=== PATIENT | female | born 1990 | race Caucasian/White ===

== ENCOUNTER 2016-12-31 14:52 | Emergency (ER) | payer BC ==
[2016-12-31 15:00] VITALS: BP 121/77
--- NOTE | 2016-12-31 16:50 | UC ---
Throat Pain/Nasal Josue HPI - HPI Summary HPI Summary: 2 days of sore throat,nasal congestion, cough no fever---Is taking Benadryl - History of Current Complaint Chief Complaint: UCRespiratory Stated Complaint: COLD,COUGH,ST Time Seen by Provider: 12/31/16 16:42 Hx Obtained From: Patient Hx Last Menstrual Period: ?: Yes Onset/Duration: Sudden Onset, Lasting Days - 2, Still Present Severity: Moderate Pain Intensity: 5 Pain Scale Used: 0-10 Numeric Cough: Nonproductive Associated Signs & Symptoms: Positive: Nasal Discharge Related History: Seasonal Allergies - Allergies/Home Medications Allergies/Adverse Reactions: Allergies Allergy/AdvReac Type Severity Reaction Status Date / Time Cefaclor [From Ceclor] Allergy Mild Rash Verified 10/10/15 11:06 Clarithromycin [From Biaxin] Allergy Mild Rash Verified 10/10/15 11:06 Penicillins Allergy Mild Rash Verified 10/10/15 11:06 Flu Virus Vaccine Allergy Hives Verified 10/10/15 11:06 Naproxen Allergy Rash Verified 10/10/15 11:07 Vancomycin Allergy Rash Verified 10/12/15 00:59 Home Medications: Home Medications Vitamin [Calna] 1 tab PO 12/31/16 [History] diPHENhydraMINE PO* [Benadryl PO 25 MG TAB*] 12/31/16 [History] PMH/Surg Hx/FS Hx/Imm Hx Previously Healthy: Yes - Surgical History Surgical History: Yes Surgery Procedure, Year, and Place: - Family History Known Family History: Positive: Hypertension - Social History Occupation: Employed Full-time Lives: With Family Alcohol Use: None Substance Use Type: None Smoking Status (MU): Former Smoker Type: Cigarettes Amount Used/How Often: none Have You Smoked in the Last Year: No Household Exposure Type: Cigarettes - Immunization History Most Recent Influenza Vaccination: declines, allergic Most Recent Tetanus Shot: 09/11/15 Most Recent Pneumonia Vaccination: never Review of Systems Constitutional: Negative Skin: Negative Eyes: Negative ENT: Sore Throat, Nasal Discharge Respiratory: Cough Cardiovascular: Negative Gastrointestinal: Negative Genitourinary: Negative Motor: Negative Neurovascular: Negative Musculoskeletal: Negative Neurological: Negative Psychological: Negative All Other Systems Reviewed And Are Negative: Yes Physical Exam Triage Information Reviewed: Yes Appearance: No Pain Distress, Well-Nourished, Ill-Appearing - mild Vital Signs: Initial Vital Signs Temp 99.1 F 12/31/16 14:56 Pulse 97 12/31/16 14:56 Resp 18 12/31/16 14:56 BP 121/77 12/31/16 14:56 Pulse Ox 100 12/31/16 14:56 Vital Signs Reviewed: Yes Eye Exam: Normal Eyes: Positive: Conjunctiva Clear ENT Exam: Normal ENT: Positive: Normal ENT inspection, Hearing grossly normal, Pharynx normal, Nasal congestion, Nasal drainage, TMs normal. Negative: Tonsillar swelling, Tonsillar exudate, Trismus, Muffled/hoarse voice Dental Exam: Normal Neck exam: Normal Neck: Positive: Supple, Nontender, No Lymphadenopathy Respiratory Exam: Normal Respiratory: Positive: Chest non-tender, Lungs clear, Normal breath sounds, No respiratory distress, No accessory muscle use Cardiovascular Exam: Normal Cardiovascular: Positive: RRR, No Murmur, Pulses Normal, Brisk Capillary Refill Musculoskeletal Exam: Normal Musculoskeletal: Positive: Strength Intact, ROM Intact Neurological Exam: Normal Neurological: Positive: Alert, Muscle Tone Normal Psychological Exam: Normal Skin Exam: Normal Diagnostics - Laboratory Diagnostic Studies Completed/Ordered: RST (-) Throat Pain/Nasal Course/Dx - Course Assessment/Plan: tylenol, benadryl, nasal saline medications as recommended by OB MD follow with pcp /ob if needed - Differential Dx/Diagnosis Differential Diagnosis/HQI/PQRI: Influenza, Chandana's Angina, Pharyngitis, Sinusitis, URI Provider Diagnoses: URI Discharge - Discharge Plan Condition: Stable Disposition: HOME Patient Education Materials: Acetaminophen (By mouth), Diphenhydramine (By mouth), Sodium Chloride (Into the nose), Upper Respiratory Infection (ED), How to Use Nasal [place] (ED) Referrals: Jv Lim MD [Primary Care Provider] - If Needed
== END 2016-12-31 17:29 | disposition home or self-care (01) ==
LOC: UCEAST 14:52
DX: J06.9 Acute upper respiratory infection, unspecified (principal)
CPT/HCPCS: 87651; 99211; G0463

== ENCOUNTER 2017-07-08 16:38 | Inpatient (IN) | payer BC, MEDICAID ==
[2017-07-08 17:22] LABS: ABS Basophils 0.1 10^3/ul (0-0.2); ABS Eosinophils 0 10^3/ul (0-0.6); ABS Lymphocytes 2.3 10^3/ul (1.0-4.8); ABS Monocytes 0.7 10^3/ul (0-0.8); ABS Neutrophils 6.4 10^3/ul (1.5-7.7); ABS Nucleated RBC 0 10^3/ul; Eosinophil % 0.2 % (0-6); Hematocrit 33 % (35-47); Hemoglobin 11.2 g/dl (12.0-16.0); Lymphocyte % 24.5 % (25-47); Mean Corpuscular HGB Conc 34 g/dl (31-36); Mean Corpuscular Hemoglobin 30 pg (27-31); Mean Corpuscular Volume 88 fL (80-97); Mean Platelet Volume 11 um3 (7.4-10.4); Nucleated Red Blood Cells % 0; Platelet Count 182 10^3/ul (150-450); Red Blood Count 3.73 10^6/ul (4.0-5.4); Red Cell Distribution Width 13 % (10.5-15); White Blood Count 9.5 10^3/ul (3.5-10.8)
[2017-07-08 17:38] LABS: INR 0.75 (0.77-1.02)
[2017-07-08 17:45] LABS: EGFR Non-African American 87.3 (>60)
[2017-07-08] MEDS ORDERED: Sodium Citrate/Citric Acid* 15 ML UDC PO ONE (19:29)
[2017-07-08] MEDS ORDERED: Famotidine IV* 10 MG/ML 2 ML (20 mg) IV ONE (19:29)
[2017-07-08] MEDS ORDERED: Metoclopramide IV* 5 MG/ML 2 ML VIAL IV SLOW PU ONE (19:29)
[2017-07-08] MEDS ORDERED: Morphine PF AMP (0.5MG/ML)* 5 MG/10 ML AMP ONE (19:36)
[2017-07-08] MEDS ORDERED: fentaNYL* 50 MCG/ML 2 ML VIAL (100 MCG VIAL) ONE (19:36)
[2017-07-08] MEDS ORDERED: Clindamycin 900 MG IVPREMIX(* 900 MG/50 ML SDV IV ONE (19:38)
[2017-07-08] MEDS ORDERED: Gentamicin ADULT (*) 250 MG in NS 0.9% 100 ML* 100 ML IVPB ONE (19:39)
[2017-07-08] MEDS ORDERED: Phenylephrine IV* 40 MCG/ML 10 ML SYRINGE ONE (21:17)
[2017-07-08] MEDS ORDERED: EPHEDrine (Pressors)* 50 MG/ML VIAL ONE (21:18)
[2017-07-08] MEDS ORDERED: Sterile Water for Inj* 10 ML ONE (21:18)
[2017-07-08] MEDS ORDERED: Ketorolac INJ* 30 MG/ML 1 ML VIAL ONE (21:41)
[2017-07-08] MEDS ORDERED: Naloxone* 0.4 MG/ML 1 ML VIAL IV PRN ×2 (21:43→21:46)
[2017-07-08] MEDS ORDERED: Scopolamine 1.5 mg* PATCH TRANSDERM PRN (21:43)
[2017-07-08] MEDS ORDERED: oxyCODONE/Acetamin 5/325 MG* TAB PO PRN ×2 (21:43→21:46)
[2017-07-08] MEDS ORDERED: Ondansetron INJ* 2 MG/ML VIAL IV PRN ×2 (21:43→21:46)
[2017-07-08] MEDS ORDERED: diPHENhydraMINE IV* 50 MG/ML 1 ml VIAL (BENADRYL) IV PRN ×2 (21:43→21:46)
[2017-07-08] MEDS ORDERED: fentaNYL* 50 MCG/ML 2 ML VIAL (100 MCG VIAL) IV PRN (21:46)
[2017-07-08] MEDS ORDERED: HYDROmorphone INJ* 1 MG/ML CARPUJECT SYRINGE IV PRN (21:46)
[2017-07-08] MEDS ORDERED: Witch Hazel PAD* JAR TOPICAL PRN (22:22)
[2017-07-08] MEDS ORDERED: Dibucaine 1% 28.35 GM TUBE PR PRN (22:22)
[2017-07-08] MEDS ORDERED: diPHENhydraMINE IV* 50 MG/ML 1 ml VIAL (BENADRYL) ONE (23:44)
--- NOTE | 2017-07-09 02:00 | OP ---
OPERATIVE REPORT: DATE OF OPERATION: 07/08/17 DATE OF : 89 SURGEON: Eric Howell MD HYDRAMATIC MECHANIC: CUCO Leal ANESTHESIOLOGIST: Dr. Diaz. ANESTHESIA: Spinal. PRE-OP DIAGNOSES: 37 + 3 weeks gestation with history of previous , gestational hypertension, and satisfied parity. POST-OP DIAGNOSES: 37+ 3 weeks gestation with history of previous , gestational hypertension, and satisfied parity. OPERATIVE PROCEDURE: Repeat low transverse section and bilateral tubal ligation. ESTIMATED BLOOD LOSS: 700 cc. URINE OUTPUT: 150 cc. IV FLUIDS: 1300 cc of Lactated Ringer's. MATERIALS TO LAB: Cord blood and bilateral tube segments. INDICATIONS: This patient is a 27-year-old 4, para 1, who presented from the office with new onset of high blood pressure and complaint of a persistent headache for the last few days. Headache varied from mild to moderate. The patient has been taking Tylenol with intermittent improvement. The patient had a significant history for severe preeclampsia with her last with delivery before 37 weeks. Labs were drawn on admission and platelets, liver function, and creatinine were all normal. Uric acid was about 6. Urine protein was negative. We discussed the patient's options at length and considering her mildly elevated blood pressure was fairly persistent, we discussed the option of immediate delivery since the patient is already past 37 weeks with gestational hypertension versus continued observation and a 24-hour urine collection to evaluate for preeclampsia. After consideration, the patient desired to proceed with delivery today. During the , she had expressed desire for tubal ligation and this was documented on her chart. We discussed both the repeat section procedure as well as the tubal ligation at great length today. We reviewed the risks of bleeding, transfusion , infection, organ injury, ectopic or intrauterine in the future, DVT , and hysterectomy. After discussion, the patient signed consent. FINDINGS: Normal-appearing uterus, fallopian tubes, and ovaries. Delivery is productive of a 6 pound 3 ounces female infant with Apgars of 9 and 9. Time of delivery was 2122. COMPLICATIONS: None. DESCRIPTION OF PROCEDURE: The risks, benefits, and alternatives were described to the patient, and informed consent was obtained. The patient was taken to the operating room with IV running, where spinal anesthesia was induced and found to be adequate. The patient was prepped and draped in normal sterile fashion in the dorsal supine position with a leftward tilt. A Pfannenstiel skin incision was made with a scalpel through the patient's previous incision. This was carried down to the underlying fascia using the scalpel and Bovie. The fascia was scored in the midline, and the incision was extended using Boudreaux scissors. The fascia was dissected off the underlying rectus muscles using blunt and sharp dissection. The rectus muscles were moderately adhesed to the fascia. The rectus muscles were in the midline using dissection with a Jackie clamp. The peritoneum was then entered bluntly. A bladder blade was placed. A low transverse uterine incision was then made with the scalpel. This was carried down to the amniotic membranes. The membranes were then ruptured, productive of clear fluid. The uterine incision was extended using blunt traction. The head was elevated to the level of the incision, and, with fundal pressure, the head delivered without difficulty. The shoulders then were also both delivered and the body followed. The had excellent tone and cried immediately on delivery. The cord was doubly clamped and cut. The was then handed to the awaiting histology aide. Cord blood was collected. The placenta was delivered with manual extraction. The uterus was then exteriorized and cleared of all clots and debris. The uterine incision was then reapproximated using 0 Polysorb in a running-locked fashion. A second layer of imbricating 0 Polysorb sutures was then also placed for good hemostasis. The posterior cul-de-sac was irrigated with saline. The right fallopian tube was then grasped with a Megan at the fibriated end. A long Jackie clamp was then used to clamp off the distal 5-6 cm of tube. A 3-0 Vicryl tie and another 3-0 stitch were then placed and the tube segment was excised with Metzenbaum scissors. There was excellent hemostasis. The same was performed on the left. The uterus was then returned to the abdomen. The incision and tubal sites were reinspected and still noted to be hemostatic. The peritoneum was closed with 3-0 Vicryl in a running fashion. The fascia was closed with 0 Polysorb in a running fashion. The subcutaneous tissues were copiously irrigated and made hemostatic using the Bovie. The skin was then closed with 4-0 Monocryl in a subcuticular stitch, then overlaid with mastisol and steristrips. A sterile bandage was then placed over the incision. The patient tolerated the procedure well. Sponge, lap, and needle counts were correct x2. [id number]/[facility] #: [id number] [facility]
[2017-07-09] MEDS: Ketorolac INJ* 30 MG/ML 1 ML VIAL IV PRN ×2 (05:15→12:10)
[2017-07-09] MEDS ORDERED: Nalbuphine* 20 MG/ML 1 ML VIAL IV ONE (05:25)
[2017-07-09] MEDS ORDERED: Nalbuphine* 20 MG/ML 1 ML VIAL ONE (05:33)
[2017-07-09 06:15] LABS: ABS Basophils 0.1 10^3/ul (0-0.2); ABS Eosinophils 0 10^3/ul (0-0.6); ABS Lymphocytes 1.3 10^3/ul (1.0-4.8); ABS Monocytes 0.5 10^3/ul (0-0.8); ABS Neutrophils 7.4 10^3/ul (1.5-7.7); ABS Nucleated RBC 0 10^3/ul; Eosinophil % 0.2 % (0-6); Hematocrit 29 % (35-47); Hemoglobin 9.8 g/dl (12.0-16.0); Lymphocyte % 13.9 % (25-47); Mean Corpuscular HGB Conc 34 g/dl (31-36); Mean Corpuscular Hemoglobin 31 pg (27-31); Mean Corpuscular Volume 89 fL (80-97); Mean Platelet Volume 10 um3 (7.4-10.4); Nucleated Red Blood Cells % 0; Platelet Count 133 10^3/ul (150-450); Red Cell Distribution Width 13 % (10.5-15); White Blood Count 9.2 10^3/ul (3.5-10.8)
[2017-07-09] MEDS: Simethicone TAB* 80 MG TAB.CHEW PO SCH ×4 (12:04→20:56)
[2017-07-09] MEDS: Ferrous Gluconate TAB* 324 MG TAB PO SCH (12:04)
[2017-07-09] MEDS: Docusate CAP* 100 MG PO SCH ×3 (12:11→20:56)
[2017-07-09] MEDS ORDERED: oxyCODONE/Acetamin 5/325 MG* TAB PO PRN (13:05)
[2017-07-09] MEDS: Ibuprofen TAB* 600 MG PO PRN (17:44)
[2017-07-09] MEDS: oxyCODONE/Acetamin 5/325 MG* TAB PO PRN (17:45)
[2017-07-10] MEDS: Ibuprofen TAB* 600 MG PO PRN ×3 (06:37→21:06)
[2017-07-10] MEDS: oxyCODONE/Acetamin 5/325 MG* TAB PO PRN ×4 (06:37→22:10)
[2017-07-10] MEDS: Simethicone TAB* 80 MG TAB.CHEW PO SCH ×4 (10:04→21:06)
[2017-07-10] MEDS: Docusate CAP* 100 MG PO SCH ×3 (10:04→21:06)
[2017-07-10] MEDS: Ferrous Gluconate TAB* 324 MG TAB PO SCH (10:04)
[2017-07-11] MEDS: Ibuprofen TAB* 600 MG PO PRN ×2 (05:57→14:00)
[2017-07-11 08:20] VITALS: BP 114/81
[2017-07-11] MEDS: Docusate CAP* 100 MG PO SCH ×2 (10:10→14:00)
[2017-07-11] MEDS: Simethicone TAB* 80 MG TAB.CHEW PO SCH ×2 (10:11→14:00)
[2017-07-11] MEDS: Ferrous Gluconate TAB* 324 MG TAB PO SCH (10:11)
[2017-07-11] MEDS: oxyCODONE/Acetamin 5/325 MG* TAB PO PRN (10:13)
[2017-07-11] MEDS ORDERED: Scopolamine PATCH Remove* 1 NOTE MISC PATCH OFF ONE (21:43)
== END 2017-07-11 14:30 | disposition home or self-care (01) | DRG 540 ==
LOC: MCHOBOUT 16:38 → MCHOB 18:45
PROVIDERS: ADMIT Obstetrics & Gynecology; ATTEND Obstetrics & Gynecology
PROC: 0UB70ZZ Excision of Bilateral Fallopian Tubes, Open Approach (ICD-10-PCS; 2017-07-08)
PROC: 10D00Z1 Extraction of Products of Conception, Low, Open Approach (ICD-10-PCS; principal; 2017-07-08 20:55)
DX: O13.4 Gestational [pregnancy-induced] hypertension without significant proteinuria, complicating childbirth (principal); O34.211 Maternal care for low transverse scar from previous cesarean delivery; Z3A.37 37 weeks gestation of pregnancy; Z37.0 Single live birth
CPT/HCPCS: 36415; 80053; 81002; 82248; 84550; 85025; 85610; 85730; 86850; 86870; 86880; 86900; 86901; 88302; A9270-GY; J1200; J1580; J1885; J2300; J2765; J3010

== ENCOUNTER 2017-12-25 13:44 | Emergency (ER) | payer BC, MEDICAID ==
[2017-12-25 14:26] VITALS: BP 108/76
--- NOTE | 2017-12-25 14:49 | UC ---
Skin Complaint HPI - HPI Summary HPI Summary: Patient presents complaining of a rash on her left thigh her left ear and her right wrist. She notes that both her children have the rash as well but they have several more spots and blistering. Patient denies any fever or chills cough short of breath nausea vomiting diarrhea she does report a little irritation left side of her throat. - History of Current Complaint Chief Complaint: UCRash Time Seen by Provider: 12/25/17 13:57 Stated Complaint: SKIN - LEFT LEG, EAR Hx Obtained From: Patient Hx Last Menstrual Period: 12/03/17 Onset/Duration: Gradual Onset Timing: Constant Pain Intensity: 0 Aggravating Factor(s): Nothing Alleviating Factor(s): Nothing - Allergy/Home Medications Allergies/Adverse Reactions: Allergies Allergy/AdvReac Type Severity Reaction Status Date / Time MS Cefaclor [From Ceclor] Allergy Mild Rash Verified 04/26/17 15:44 MS Clarithromycin Allergy Mild Rash Verified 04/26/17 15:44 [From Biaxin] MS Penicillins [Penicillins] Allergy Mild Rash Verified 04/26/17 15:44 MS Flu Virus Vaccine Allergy Hives Verified 04/26/17 15:44 [Flu Virus Vaccine] MS Naproxen [Naproxen] Allergy Rash Verified 04/26/17 15:44 MS Vancomycin [Vancomycin] Allergy Rash Verified 04/26/17 15:44 ppd Allergy Rash Uncoded 12/25/17 14:27 Home Medications: Home Medications NK [No Home Medications Reported] 12/25/17 [History Confirmed 12/25/17] Review of Systems Constitutional: Negative Skin: Rash Eyes: Negative ENT: Sore Throat Respiratory: Negative Cardiovascular: Negative Gastrointestinal: Negative Genitourinary: Negative Motor: Negative Neurovascular: Negative Musculoskeletal: Negative Neurological: Negative Psychological: Negative Is Patient Immunocompromised?: No All Other Systems Reviewed And Are Negative: Yes PMH/Surg Hx/FS Hx/Imm Hx Previously Healthy: Yes - Surgical History Surgical History: Yes Surgery Procedure, Year, and Place: x 2 - Family History Known Family History: Positive: Hypertension - Social History Occupation: Employed Full-time Lives: With Family Alcohol Use: Occasionally Substance Use Type: None Smoking Status (MU): Former Smoker Type: Cigarettes Amount Used/How Often: none Length of Time of Smoking/Using Tobacco: occasional smoker Have You Smoked in the Last Year: No When Did the Patient Quit Smoking/Using Tobacco: 2014 Household Exposure Type: Cigarettes - Immunization History Most Recent Influenza Vaccination: declines, allergic Most Recent Tetanus Shot: 09/11/15 Most Recent Pneumonia Vaccination: never Vaccination Up to Date: Yes Physical Exam Triage Information Reviewed: Yes Appearance: Well-Appearing Vital Signs: Initial Vital Signs Temp 97.9 F 12/25/17 14:20 Pulse 73 12/25/17 14:20 Resp 16 12/25/17 14:20 BP 108/76 12/25/17 14:20 Pulse Ox 99 12/25/17 14:20 Vital Signs Reviewed: Yes Eyes: Positive: Conjunctiva Clear ENT: Positive: Pharyngeal erythema - ? slight, TMs normal, Uvula midline. Negative: Nasal congestion, Nasal drainage, Tonsillar swelling, Tonsillar exudate, Trismus, Muffled voice, Hoarse voice Neck: Positive: Supple, Nontender, No Lymphadenopathy Respiratory: Positive: Lungs clear, Normal breath sounds Cardiovascular: Positive: RRR, No Murmur Abdomen Description: Positive: Nontender, No Organomegaly, Soft Bowel Sounds: Positive: Present Musculoskeletal: Positive: ROM Intact Neurological: Positive: Alert Psychological: Positive: Age Appropriate Behavior Skin Exam: Normal Skin: Positive: rashes - 4 red bumps L thigh, 1 R wrist and L ear. Course/Dx - Course Course Of Treatment: both children with hand foot mouth and this is the same. tx supportive - Diagnoses Provider Diagnoses: hand foot mouth disease Discharge - Sign-Out/Discharge Documenting (check all that apply): Patient Departure - Discharge Plan Condition: Stable Disposition: HOME Patient Education Materials: Hand, Foot, and Mouth Disease (ED) Forms: *Work Release Referrals: Jared Flores MD [Primary Care Provider] - 5 Days - Billing Disposition and Condition Condition: STABLE Disposition: Home
== END 2017-12-25 15:10 | disposition home or self-care (01) ==
LOC: UCCORT 13:44
DX: B08.4 Enteroviral vesicular stomatitis with exanthem (principal); Z88.6 Allergy status to analgesic agent; Z88.1 Allergy status to other antibiotic agents; Z88.0 Allergy status to penicillin; Z87.891 Personal history of nicotine dependence
CPT/HCPCS: 99211; G0463

== ENCOUNTER 2018-06-23 13:24 | Emergency (ER) | payer BC, MEDICAID ==
[2018-06-23 14:29] VITALS: BP 122/80
--- NOTE | 2018-06-23 15:23 | UC ---
Eye Complaint HPI - HPI Summary HPI Summary: Pt c/o sudden onset of "red dot on inner upper, corner of right eye and mild swelling and tenderness of right lower lid. - History of Current Complaint Chief Complaint: UCEye Stated Complaint: RIGHT EYE CONCERN Time Seen by Provider: 06/23/18 14:24 Hx Obtained From: Patient Hx Last Menstrual Period: about 3 weeks ?: No Onset/Duration: Sudden Onset, Still Present Timing: Constant Severity Initially: Mild Severity Currently: Mild Pain Intensity: 0 Pain Scale Used: 0-10 Numeric Location of Injury: Eye Lid (lower), Sclera Aggravating Factor(s): Nothing Alleviating Factor(s): Nothing Associated Signs And Symptoms: Positive: Negative Related History: Similar Episode - Risk Factors Penetrating Injury Risk Factor: Negative Globe Rupture Risk Factors: Negative Acute Glaucoma Risk Factors: Negative - Allergies/Home Medications Allergies/Adverse Reactions: Allergies Allergy/AdvReac Type Severity Reaction Status Date / Time cefaclor [From Ceclor] Allergy Rash Verified 06/23/18 14:34 clarithromycin Allergy Rash Verified 06/23/18 14:34 naproxen Allergy Rash Verified 06/23/18 14:34 Penicillins Allergy Rash Verified 06/23/18 14:34 vancomycin Allergy Rash Verified 06/23/18 14:34 flu vaccine Allergy Rash Uncoded 06/23/18 14:34 ppd Allergy Rash Uncoded 06/23/18 14:34 PMH/Surg Hx/FS Hx/Imm Hx Previously Healthy: Yes - Surgical History Surgical History: Yes Surgery Procedure, Year, and Place: x 2 - Family History Known Family History: Positive: Hypertension - Social History Occupation: Employed Full-time Lives: With Family Alcohol Use: Occasionally Substance Use Type: None Smoking Status (MU): Former Smoker Type: Cigarettes Amount Used/How Often: none Length of Time of Smoking/Using Tobacco: occasional smoker Have You Smoked in the Last Year: No When Did the Patient Quit Smoking/Using Tobacco: 2015 Household Exposure Type: Cigarettes - Immunization History Most Recent Influenza Vaccination: declines, allergic Most Recent Tetanus Shot: 09/11/15 Most Recent Pneumonia Vaccination: never Vaccination Up to Date: Yes Review of Systems All Other Systems Reviewed And Are Negative: Yes Constitutional: Positive: Negative Skin: Positive: Negative Eyes: Positive: Other - ruptured blood vessel, and mild swelling of right lower lid. ENT: Positive: Negative Respiratory: Positive: Negative Cardiovascular: Positive: Negative Gastrointestinal: Positive: Negative Genitourinary: Positive: Negative Motor: Positive: Negative Neurovascular: Positive: Negative Musculoskeletal: Positive: Negative Neurological: Positive: Negative Psychological: Positive: Negative Is Patient Immunocompromised?: No Physical Exam Triage Information Reviewed: Yes Appearance: Well-Appearing Vital Signs: Initial Vital Signs Temp 98.1 F 06/23/18 14:21 Pulse 71 06/23/18 14:21 Resp 18 06/23/18 14:21 BP 122/80 06/23/18 14:21 Pulse Ox 100 06/23/18 14:21 Vital Signs Reviewed: Yes Eye Exam: Other - subconjunctival hemorrhage ENT Exam: Normal Dental Exam: Normal Neck exam: Normal Respiratory Exam: Normal Respiratory: Positive: No respiratory distress Musculoskeletal Exam: Normal Neurological Exam: Normal Psychological Exam: Normal Skin Exam: Normal Eye Complaint Course/Dx - Differential Dx/Diagnosis Differential Diagnosis/HQI/PQRI: Conjunctivitis Provider Diagnosis: Subconjunctival bleed, Hordeolum externum right lower eyelid Discharge - Sign-Out/Discharge Documenting (check all that apply): Patient Departure All imaging exams completed and their final reports reviewed: No Studies - Discharge Plan Condition: Stable Disposition: HOME Patient Education Materials: Subconjunctival Hemorrhage (ED), Stye (ED) Referrals: Jared Flores MD [Primary Care Provider] - If Needed Additional Instructions: Please follow up with your PCP and eye care provider as needed. - Billing Disposition and Condition Condition: STABLE Disposition: Home - Attestation Statements Provider Attestation: I was available for consult. This patient was seen by the ANABELL. The patient was not presented to, seen by, or examined by me. -Ash
== END 2018-06-23 14:57 | disposition home or self-care (01) ==
LOC: UCCORT 13:24
DX: H11.31 Conjunctival hemorrhage, right eye (principal); H00.012 Hordeolum externum right lower eyelid; Z88.1 Allergy status to other antibiotic agents; Z88.0 Allergy status to penicillin; Z88.6 Allergy status to analgesic agent; Z87.891 Personal history of nicotine dependence
CPT/HCPCS: 99211; G0463

== ENCOUNTER 2018-12-06 18:40 | Emergency (ER) | payer MEDICAID ==
[2018-12-06 19:02] VITALS: BP 117/76
--- NOTE | 2018-12-06 19:29 | ED ---
Skin Complaint - HPI Summary HPI Summary: 28 yr old female with rash on abdominal wall for over a month. It is mildly itchy. She is here today because someone came to her house with scabies last night and was concerned for scabies. This person just sat in one of her kitchen chairs and left after a short time. - History of Current Complaint Chief Complaint: UCSkin Time Seen by Provider: 12/06/18 19:03 Stated Complaint: SKIN ISSUE ITCHING Hx Last Menstrual Period: ~a month ago~hx tubal Pain Intensity: 0 - Allergy/Home Medications Allergies/Adverse Reactions: Allergies Allergy/AdvReac Type Severity Reaction Status Date / Time cefaclor [From [facility]] Allergy Rash Verified 12/06/18 18:58 clarithromycin Allergy Rash Verified 12/06/18 18:58 naproxen Allergy Rash Verified 12/06/18 18:58 Penicillins Allergy Rash Verified 12/06/18 18:58 vancomycin Allergy Rash Verified 12/06/18 18:58 flu vaccine Allergy Rash Uncoded 12/06/18 18:58 ppd Allergy Rash Uncoded 12/06/18 18:58 Home Medications: Home Medications Cetirizine* [ZyrTEC 10 MG TAB*] 10 mg PO DAILY 12/06/18 [History Confirmed 12/06] PMH/Surg Hx/FS Hx/Imm Hx Endocrine/Hematology History: Denies: Hx Diabetes, Hx Thyroid Disease Cardiovascular History: Reports: Hx Hypertension - during pregnancies Respiratory History: Reports: Hx Asthma Denies: Hx Chronic Obstructive Pulmonary Disease (COPD) GI History: Denies: Hx Ulcer - Cancer History Cancer Type, Location and Year: cervical cancer dx'sed 1 yr ago, pt has not begun tx. - Surgical History Surgery Procedure, Year, and Place: x 2 Infectious Disease History: No Infectious Disease History: Denies: Hx Hepatitis, Hx Human Immunodeficiency Virus (HIV), Traveled Outside the [place] in Last 30 Days - Family History Known Family History: Positive: Hypertension - Social History Lives: With Family Alcohol Use: Occasionally Substance Use Type: Reports: None Smoking Status (MU): Former Smoker Type: Cigarettes Amount Used/How Often: none Length of Time of Smoking/Using Tobacco: occasional smoker Have You Smoked in the Last Year: No Review of Systems Constitutional: Negative Positive: Rash All Other Systems Reviewed And Are Negative: Yes Physical Exam Triage Information Reviewed: Yes Vital Signs On Initial Exam: Initial Vitals Temp Pulse Resp BP Pulse Ox 98.8 F 75 16 117/76 96 12/06/18 18:59 12/06/18 18:59 12/06/18 18:59 12/06/18 18:59 12/06/18 18:59 Vital Signs Reviewed: Yes Appearance: Positive: Well-Appearing, No Pain Distress Skin: Positive: Other - rash on abdomen that is with hyperpigmentations, raised irregular boarder, some scaline and lichen appearance. There are a hand full of small patches present and appears consistent with tinea corporis. no scabs or tracts anywhere. Eyes: Positive: EOMI ENT: Positive: Normal ENT inspection Neck: Positive: Nontender Respiratory/Lung Sounds: Positive: Clear to Auscultation, Breath Sounds Present Cardiovascular: Positive: RRR. Negative: Murmur Abdomen Description: Positive: Nontender. Negative: Distended Musculoskeletal: Positive: Strength/ROM Intact Neurological: Positive: Sensory/Motor Intact, Alert, Oriented to Person Place, Time, CN Intact II-III, Speech Normal Psychiatric: Positive: Normal Diagnostics - Vital Signs Vital Signs Temp Pulse Resp BP Pulse Ox 12/06/18 18:59 98.8 F 75 16 117/76 96 - Laboratory Lab Statement: Any lab studies that have been ordered have been reviewed, and results considered in the medical decision making process. Course/Dx - Course Course Of Treatment: 28 yr old with tinea corporis, Recommend miconazole. FU with PMD - Diagnoses Provider Diagnoses: Tinea corporis Discharge - Sign-Out/Discharge Documenting (check all that apply): Patient Departure All imaging exams completed and their final reports reviewed: No Studies - Discharge Plan Condition: Good Disposition: HOME Patient Education Materials: Tinea Corporis (ED) Referrals: Jared Ibanez [Primary Care Provider] - 2 Days Additional Instructions: use miconazole cream to the abdominal skin lesions twice a day. This is bought over the counter, and is not a prescription. See your primary doctor in follow up in the next 7 days. you can also grain picker selsun blue shampoo to use as a body wash, and be sure it has the selenium sulfide in it. - Billing Disposition and Condition Condition: GOOD Disposition: Home
== END 2018-12-06 19:31 | disposition home or self-care (01) ==
LOC: UCCORT 18:40
DX: B35.4 Tinea corporis (principal); Z87.891 Personal history of nicotine dependence; Z20.89 Contact with and (suspected) exposure to other communicable diseases
CPT/HCPCS: 99211; G0463